=== PATIENT | female | born 2000 | race Caucasian/White ===

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

== ENCOUNTER → 2022-03-28 | Outpatient (CLI) | payer OTHER ==
--- NOTE | 2022-03-28 17:29 | US ---
EXAMINATION TYPE: US kidneys/renal and bladder DATE OF EXAM: 03/28/2022 COMPARISON: NONE CLINICAL HISTORY: R10.9 left flanK pain. left flank pain x 1 week EXAM MEASUREMENTS: Right Kidney: 10.3 x 4.7 x 4.7 cm Left Kidney: 11.0 x 4.6 x 5.9 cm Right Kidney: No hydronephrosis or masses seen Left Kidney: No hydronephrosis or masses seen Bladder: wnl Bilateral Jets seen: Yes IMPRESSION: No renal mass or obstruction. There are bilateral ureteral jets.
== END | disposition home or self-care (01) ==
LOC: RADUSWWP 16:49
PROVIDERS: ATTEND Family Medicine
DX: R10.9 Unspecified abdominal pain (principal)
CPT/HCPCS: 76770

== ENCOUNTER → 2022-08-25 | Outpatient (CLI) | payer OTHER ==
--- NOTE | 2022-08-25 09:43 | US ---
EXAMINATION TYPE: Transabdominal DATE OF EXAM: 08/25/2022 9:19 AM COMPARISON: US CLINICAL HISTORY: Z36.89 CONFIRM DATES AND VIABILITY. Confirm Dates EXAM PERFORMED: Transabdominal (TA) EXAM MEASUREMENTS: GESTATIONAL AGE / DATING Physician Established: (8 weeks/0 days) EDC: 04/06/2023 Dates by LMP: (8 weeks/0 days) EDC: 04/06/2023 Dates by First Scan: Too early to date Dates by Current Scan for: (9 weeks/3 days) EDC: 03/27/2023 MATERNAL ANATOMY Uterus: 11.0 x 7.1 x 7.8 cm Right Ovary: 3.4 x 1.8 x 2.3 cm Left Ovary: 3.1 x 2.2 x 3.2 cm Post CDS / Adnexa: wnl Presence of free fluid: No Presence of corpus luteal cyst: Left Ovary= 2.1 x 2.0 x 2.1 cm Presence of subchorionic bleed: No GESTATION / SURVEY CRL: 2.6 cm (9 weeks/3 days) MSD: wnl Yolk Sac (normal less than 6mm): 3mm Heart Rate: 181 bpm Rhythm: Normal IUP: Viable IUP Date of LMP: 06/30/2022 Single, viable IUP/ No abnormality visualized at this time IMPRESSION: Single viable internal .
== END | disposition home or self-care (01) ==
LOC: RADUSWWP 09:02
PROVIDERS: ATTEND Obstetrics & Gynecology
DX: Z36.89 Encounter for other specified antenatal screening (principal)
CPT/HCPCS: 76801

== ENCOUNTER 2022-09-08 22:01 | Emergency (ER) | payer OTHER ==
[2022-09-08 23:17] LABS: Appearance,Urine Cloudy (Clear); Bilirubin,Urine Negative (Negative); Blood,Urine Negative (Negative); Color,Urine Yellow; Glucose,Urine (UA) Negative (Negative); Ketones,Urine Negative (Negative); Leukocyte Esterase,Urine Negative (Negative); Mucus,Urine Occasional /hpf; Nitrite,Urine Negative (Negative); PH, Urine 5.5 (5.0-8.0); Protein,Urine Negative (Negative); RBC,Urine <1 /hpf (0-5); Specific Gravity,Urine 1.018 (1.001-1.035); Squamous Epithelial Cell,Urine 5 /hpf (0-4); Urobilinogen,Urine <2.0 mg/dL (<2.0); WBC,Urine 5 /hpf (0-5)
[2022-09-09 00:31] VITALS: RESP 18
[2022-09-09] MEDS ORDERED: ACETAMINOPHEN TAB 325 MG TAB PO STA (00:52)
--- NOTE | 2022-09-09 00:55 | ED ---
Dizziness HPI - General Chief Complaint: Dizziness Stated Complaint: Dizziness, Low Blood Pressure, 12 Weeks preg. Time Seen by Provider: 09/09/22 00:36 Source: patient, family, RN notes reviewed, old records reviewed Mode of arrival: ambulatory Limitations: no limitations - History of Present Illness Initial Comments: This is a nontoxic-appearing 22-year-old female presents to the emergency room with her significant other complaining of dizziness on and off for the past 3 days. 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 She has not been any eating very much and not drinking enough water due to her shift change. States that dizziness is worse when going from a lying to sitting or sitting to standing. Denies any vaginal bleeding or abdominal pain. No fevers. No nausea vomiting or diarrhea. States she does have appointment with her primary FUEL CELL DESIGNER tomorrow Dr. Corona. She is a . Did have an ultrasound for this on August 26 showing an IUP of 9 weeks. MD Complaint: lightheadedness -: days(s) (1) Timing: gradual onset History of Same: No History of Trauma: No Improves With: rest Associated Symptoms: denies other symptoms - Related Data Home Medications Medication Instructions Recorded Confirmed EPINEPHrine (Auto Inject) [Epipen] 0.3 mg IM ONCE PRN 02/07/21 02/07/21 Previous Rx's Medication Instructions Recorded Permethrin 5% Cream [Elimite] 1 applic TOPICAL ONCE #60 gram 03/22/21 hydrOXYzine HCL [Atarax] 25 mg PO TID PRN #15 tab 03/22/21 Allergies Allergy/AdvReac Type Severity Reaction Status Date / Time bee venom protein (honey bee) Allergy Anaphylaxis Verified 07/19/22 10:53 latex Allergy Rash/Hives Verified 09/08/22 22:17 Review of Systems ROS Statement: Those systems with pertinent positive or pertinent negative responses have been documented in the HPI. ROS Other: All systems not noted in ROS Statement are negative. Past Medical History Past Medical History: No Reported History History of Any Multi-Drug Resistant Organisms: None Reported Past Surgical History: No Surgical Hx Reported Past Psychological History: No Psychological Hx Reported Smoking Status: Never smoker Past Alcohol Use History: None Reported Past Drug Use History: None Reported General Exam Limitations: no limitations General appearance: alert, in no apparent distress Head exam: Present: atraumatic Eye exam: Present: normal appearance. Absent: scleral icterus, conjunctival injection, periorbital swelling, periorbital tenderness ENT exam: Present: mucous membranes moist Neck exam: Present: full ROM. Absent: meningismus Respiratory exam: Present: normal lung sounds bilaterally. Absent: respiratory distress, accessory muscle use Cardiovascular Exam: Present: regular rate GI/Abdominal exam: Present: soft. Absent: distended, tenderness, guarding, rebound, rigid Extremities exam: Present: full ROM, normal capillary refill. Absent: tenderness, pedal edema Back exam: Absent: tenderness Neurological exam: Present: alert, oriented X3, CN II-XII intact Psychiatric exam: Present: normal affect, normal mood Skin exam: Present: warm, dry, normal color. Absent: cyanosis, diaphoretic, petechiae, pallor Course Vital Signs 09/08/22 09/09/22 09/09/22 22:14 00:29 01:15 Temperature 98.6 F 98.5 F Pulse Rate 83 77 Pulse Rate [ 78 Right Standing Maintenance Electrician ] Pulse Rate [ 74 Right Supine Maintenance Electrician ] Respiratory 16 18 Rate Blood Pressure 133/86 115/80 Blood Pressure 131/79 [Right Arm Standing] Blood Pressure 113/71 [Right Arm Supine] O2 Sat by Pulse 99 Oximetry 09/09/22 01:40 Temperature 98.3 F Pulse Rate 74 Pulse Rate [ Right Standing Maintenance Electrician ] Pulse Rate [ Right Supine Maintenance Electrician ] Respiratory 18 Rate Blood Pressure 107/69 Blood Pressure [Right Arm Standing] Blood Pressure [Right Arm Supine] O2 Sat by Pulse 98 Oximetry EKG Findings - EKG Results: EKG: sinus rhythm (EKG shows sinus rhythm with a ventricular rate of 63, SD interval 0.144, QRS 0.81, QTC 0.401; normal axis) Medical Decision Making - Medical Decision Making Patient states that she does feel dehydrated as though she's not been eating and upper drinking enough fluids. She was offered an IV and declined. She was offered blood work and declined. She was agreeable to receiving Tylenol and given water to drink. She denies any vaginal bleeding, or abdominal pain. On physical exam abdomen is soft and nontender. Urinalysis today shows no evidence of UTI. Vital signs are stable. Orthostatic vital signs were performed negative. EKG performed showing sinus rhythm with ventricular rate of 63, SD interval 0.144, QRS 0.81, QTC 0.41, normal axis, no old EKG to compare Patient had ultrasound done on August 25, which I reviewed report showing a single viable IUP with a heart rate of 181. Patient states that she is working nights this week which is hard adjustment for her. She was offered time off work and she declined. She is encouraged to increase her fluid intake and get plenty of rest. She states she has an appointment with her primary FUEL CELL DESIGNER Dr. Corona tomorrow. Directed to return to the emergency room with any new or concerning symptoms. She is agreeable to this plan of care. Case discussed with Dr. Montilla Was pt. sent in by a medical professional or institution (, PA, PAVING MACHINE OPERATOR, urgent care, hospital, or half-way...) When possible be specific @ -No Did you speak to anyone other than the patient for history (EMS, parent, family, police, friend...)? What history was obtained from this source @ -No Did you review nursing and triage notes (agree or disagree)? Why? @ -I reviewed and agree with nursing and triage notes Were old charts reviewed (outside hosp., previous admission, EMS record, old EKG, old radiological studies, urgent care reports/EKG's, half-way records)? Report findings @ -Yes previous ultrasound as above Differential Diagnosis (chest pain, altered mental status, abdominal pain women, abdominal pain men, vaginal bleeding, weakness, fever, dyspnea, syncope, headache, dizziness, GI bleed, back pain, seizure, CVA, palpatations, mental health, musculoskeletal)? @ -Orthostatic hypotension, UTI, cardiac arrhythmia, dehydration EKG interpreted by me (3pts min.). @ -Yes as above X-rays interpreted by me (1pt min.). @ -None done CT interpreted by me (1pt min.). @ -None done U/S interpreted by me (1pt. min.). @ -None done What testing was considered but not performed or refused? (CT, X-rays, U/S, labs)? Why? @ -None What meds were considered but not given or refused? Why? @ -None Did you discuss the management of the patient with other professionals (professionals i.e. , PA, PAVING MACHINE OPERATOR, lab, RT, psych nurse, socially responsible investment adviser, bilingual loan processor, teacher, chief administrative officer, case fitter)? Give summary @ -No Was smoking cessation discussed for >3mins.? @ -No Was critical care preformed (if so, how long)? @ -No Were there social determinants of health that impacted care today? How? (Homelessness, low income, unemployed, alcoholism, drug addiction, transpor tation, low edu. Level, literacy, decrease access to med. care, halfway, rehab)? @ -No Was there de-escalation of care discussed even if they declined (Discuss DNR or withdrawal of care, Hospice)? DNR status @ -No What co-morbidities impacted this encounter? (DM, HTN, Smoking, COPD, CAD, Cancer, CVA, ARF, Chemo, Hep., AIDS, mental health diagnosis, sleep apnea, morbid obesity)? @ -None Was patient admitted / discharged? Hospital course, mention meds given and route, prescriptions, significant lab abnormalities, going to OR and other pertinent info. @ -Discharged Undiagnosed new problem with uncertain prognosis? @ -No Drug Therapy requiring intensive monitoring for toxicity (Heparin, Nitro, Insulin, Cardizem)? @ -No Were any procedures done? @ -No Diagnosis/symptom? @ -Lightheadedness Acute, or Chronic, or Acute on Chronic? @ -Acute Uncomplicated (without systemic symptoms) or Complicated (systemic symptoms)? @ -Uncomplicated Side effects of treatment? @ -No Exacerbation, Progression, or Severe Exacerbation? @ -No Poses a threat to life or bodily function? How? (Chest pain, [place], [place], pneumonia, PE, COPD, DKA, ARF, appy, cholecystitis, CVA, Diverticulitis, Homicidal, Suicidal, threat to staff... and all critical care pts) @ -No - Lab Data Lab Results 09/08/22 09/08/22 Range/Units 22:24 22:24 Urine Color Yellow Urine Appearance Cloudy H (Clear) Urine pH 5.5 (5.0-8.0) Ur Specific [place] 1.018 (1.001-1.035) Urine Protein Negative (Negative) Urine Glucose (UA) Negative (Negative) Urine Ketones Negative (Negative) Urine Blood Negative (Negative) Urine Nitrite Negative (Negative) Urine Bilirubin Negative (Negative) Urine Urobilinogen <2.0 (<2.0) mg/dL Ur Leukocyte Esterase Negative (Negative) Urine RBC <1 (0-5) /hpf Urine WBC 5 (0-5) /hpf Ur Squamous Epith Cells 5 H (0-4) /hpf Urine Mucus Occasional H (None) /hpf Urine HCG, Qual Detected (Not Detectd) Disposition Clinical Impression: Dizziness Disposition: HOME SELF-CARE Condition: Good Instructions (If sedation given, give patient instructions): Dizziness (ED) Additional Instructions: Increase your fluid intake. Continue taking vitamins. Follow-up with your FUEL CELL DESIGNER as scheduled tomorrow. Return to the emergency room with any new or concerning symptoms. Is patient prescribed a controlled substance at d/c from ED?: No Referrals: None,Stated [Primary Care Provider] - 1-2 days Man Corona MD [STAFF PHYSICIAN] - 1-2 days Time of Disposition: 01:29
[2022-09-09 01:42] VITALS: BP 107/69; PULSE 74; TEMP 98.3
== END 2022-09-09 01:42 | disposition home or self-care (01) ==
LOC: EC 22:01
DX: R42 Dizziness and giddiness (principal); Z91.040 Latex allergy status; Z91.030 Bee allergy status
CPT/HCPCS: 81001; 81025; 93005; 99284

== ENCOUNTER 2023-01-06 19:15 | Outpatient (CLI) | payer OTHER ==
[2023-01-06] MEDS ORDERED: LACTATED RINGERS 1,000 ML IV SCH (20:30)
[2023-01-06 21:14] LABS: Basophils % (A) 0 %; Eosinophils # (A) 0.2 k/uL (0-0.7); Eosinophils % (A) 1 %; HCT 33.1 % (34.0-46.0); HGB 11.3 gm/dL (11.4-16.0); Lymphocytes # (A) 2.3 k/uL (1.0-4.8); Lymphocytes % (A) 17 %; MCH 31.2 pg (25.0-35.0); MCHC 34.3 g/dL (31.0-37.0); MCV 91.1 fL (80.0-100.0); Monocytes # (A) 0.6 k/uL (0-1.0); Monocytes % (A) 4 %; Neutrophils # (A) 10.7 k/uL (1.3-7.7); Neutrophils % (A) 77 %; Platelet Count 269 k/uL (150-450); Poikilocytosis Slight; RBC 3.64 m/uL (3.80-5.40); RDW 13.8 % (11.5-15.5); WBC 13.9 k/uL (4.0-11.0)
[2023-01-06 21:14] LABS: Appearance,Urine Clear (Clear); Bilirubin,Urine Negative (Negative); Blood,Urine Negative (Negative); Color,Urine Light Yellow; Glucose,Urine (UA) Negative (Negative); Ketones,Urine Negative (Negative); Leukocyte Esterase,Urine Negative (Negative); Nitrite,Urine Negative (Negative); Protein,Urine Negative (Negative); Specific Gravity,Urine 1.011 (1.001-1.035); Urobilinogen,Urine <2.0 mg/dL (<2.0)
[2023-01-06 21:28] LABS: ALT 19 U/L (4-34); AST 22 U/L (14-36); African American GFR (CKD) >90 (>60 ml/min/1.73 sqM); Albumin 3.7 g/dL (3.5-5.0); Alkaline Phosphatase 103 U/L (38-126); Anion Gap 10 mmol/L; Blood Urea Nitrogen 7 mg/dL (7-17); Calcium 9.4 mg/dL (8.4-10.2); Carbon Dioxide 18 mmol/L (22-30); Chloride 106 mmol/L (98-107); Glucose 72 mg/dL (74-99); Non-African American GFR(CKD) >90 (>60 ml/min/1.73 sqM); Potassium 3.7 mmol/L (3.5-5.1); Sodium 134 mmol/L (137-145); Total Bilirubin 0.6 mg/dL (0.2-1.3); Total Protein 6.8 g/dL (6.3-8.2)
[2023-01-06 22:57] VITALS: BP 124/70; PULSE 87; RESP 18; TEMP 98.1
--- NOTE | 2023-01-07 04:50 | P.MSEPDOC ---
Presenting Problems - Arrival Data Date of Arrival on Unit: 01/06/23 Time of Arrival on Unit: 19:15 Mode of Transport: Ambulatory - Complaint OB-Reason for Admission/Chief Complaint: Decreased Movement, Other Comment: pt presents with complaints of severe pain in abdomen about 20 after eating or. drinking anything followed by severe loose stools that are "alomost all water today". this has been going on about 3 days also lt sides lower back pain similar to when she had kidney stones at 19. weeks. Medical History - Information : 1 Para: 0 Term: 0 : 0 Abortions: Spontaneous or Elective: 0 Number of Living Children: 0 - Gestational Age Gestational Age by SERGIO (wks/days): 28 Weeks and 4 Days Review of Systems - Review of Systems Constitutional: No problems Breast: No problems ENT: No problems Cardiovascular: No problems Respiratory: No problems Gastrointestinal: Diarrhea Genitourinary: No problems Musculoskeletal: No problems Neurological: No problems Skin: No problems Vital Signs - Temperature Temperature: 98.1 F Temperature Source: Oral - Pulse Right Pulse Rate: 87 Pulse Assessment Method: Pulse Oximetry - Respirations Respiratory Rate: 18 Oxygen Delivery Method: Room Air O2 Sat by Pulse Oximetry: 98 - Blood Pressure Right Arm Blood Pressure: 124/70 Blood Pressure Mean: 88 Blood Pressure Source: Automatic Cuff Medical Screen Scoring - Cervical Exam Dilation (cm): 0 Effacement (%): 0 - Uterine Contractions Frequency From (mins): 0 Frequency To (mins): 10 Duration From (seconds): 20 Duration To (seconds): 40 Intensity: Mild Resting: Soft to palpation - Assessment - Baby A Baseline FHR: 125 Heart Rate - NICHD Category: Category I (Normal) NST: Reactive Physician Notification - Physician Notified Physician Notified Date: 01/06/23 Physician Notified Time: 20:14 Physician: Poornima Hollis Order Received: Yes - Notification Comment Comment: IV LR, LABS, UA Maternal Triage Index - Maternal Triage Index Presenting for scheduled procedure w/no complaint: No - Stat/Priority 1 Stat Priority 1: No - Urgent/Priority 2 Urgent Priority 2: No - Prompt/Priority 3 Prompt Priority 3: No - Non-Urgent/Priority 4 Non-Urgent Priority 4: Yes Criteria Met for Priority 4: loose stools and abd pain Disposition - Disposition OB Disposition: Discharge to home Discharge Date: 01/06/23 Discharge Time: 22:20 I agree with the RN Medical Screening Exam: Yes Case reviewed; plan agreed upon as documented in EMR&OBIX.: Yes Diagnosis: DIARRHEA, UNSPECIFIED
== END 2023-01-06 22:20 | disposition home or self-care (01) ==
LOC: FBPOP 19:15
PROVIDERS: ATTEND Obstetrics & Gynecology
DX: O36.8131 Decreased fetal movements, third trimester, fetus 1 (principal); O99.891 Other specified diseases and conditions complicating pregnancy; R19.7 Diarrhea, unspecified; Z3A.28 28 weeks gestation of pregnancy; Z91.030 Bee allergy status; Z88.5 Allergy status to narcotic agent; Z91.040 Latex allergy status
CPT/HCPCS: 59025; 80053; 85025; 81003; G0463; 99213

== ENCOUNTER 2023-02-20 12:56 | Outpatient (CLI) | payer OTHER ==
[2023-02-20 14:56] VITALS: BP 130/77; RESP 17; TEMP 96.3
--- NOTE | 2023-02-24 06:39 | P.MSEPDOC ---
Presenting Problems - Arrival Data Date of Arrival on Unit: 02/20/23 Time of Arrival on Unit: 12:56 Mode of Transport: Ambulatory - Complaint OB-Reason for Admission/Chief Complaint: Decreased Movement Comment: pt states she only felt one movment on the way here for the whole day Medical History - Information : 1 Para: 0 Term: 0 : 0 Abortions: Spontaneous or Elective: 0 Number of Living Children: 0 - Gestational Age Gestational Age by SERGIO (wks/days): 35 Weeks and 0 Days Review of Systems - Review of Systems Constitutional: No problems Breast: No problems ENT: No problems Cardiovascular: No problems Respiratory: No problems Gastrointestinal: No problems Genitourinary: No problems Musculoskeletal: No problems Neurological: No problems Skin: No problems Vital Signs - Temperature Temperature: 96.3 F Temperature Source: Temporal Artery Scan - Respirations Respiratory Rate: 17 Oxygen Delivery Method: Room Air O2 Sat by Pulse Oximetry: 99 - Blood Pressure Right Arm Blood Pressure: 130/77 Blood Pressure Mean: 94 Blood Pressure Source: Automatic Cuff Medical Screen Scoring - Assessment - Baby A Baseline FHR: 130 Heart Rate - NICHD Category: Category I (Normal) NST: Reactive Physician Notification - Physician Notified Physician Notified Date: 02/20/23 Physician Notified Time: 13:30 Physician: Man Corona New Order Received: Yes - Notification Comment Comment: Ok to D/C after reactive NSt Maternal Triage Index - Maternal Triage Index Presenting for scheduled procedure w/no complaint: No - Stat/Priority 1 Stat Priority 1: No - Urgent/Priority 2 Urgent Priority 2: Yes Provider Notified: Man Corona Provider Notified Time: 13:30 Criteria Met for Priority 2: decrease movement Disposition - Disposition OB Disposition: Discharge to home Discharge Date: 02/20/23 Discharge Time: 13:59 I agree with the RN Medical Screening Exam: Yes Case reviewed; plan agreed upon as documented in EMR&OBIX.: Yes Diagnosis: DECREASED MOVEMENTS, THIRD TRIMESTER, FETUS 1
== END 2023-02-20 13:59 | disposition home or self-care (01) ==
LOC: FBPOP 12:56
PROVIDERS: ATTEND Obstetrics & Gynecology
DX: O36.8131 Decreased fetal movements, third trimester, fetus 1 (principal); Z3A.35 35 weeks gestation of pregnancy; Z91.030 Bee allergy status; Z91.040 Latex allergy status; Z88.5 Allergy status to narcotic agent
CPT/HCPCS: 99213

== ENCOUNTER 2023-02-24 09:09 | Outpatient (CLI) | payer OTHER ==
[2023-02-24 11:25] VITALS: BP 132/79; PULSE 111; RESP 16; TEMP 98
--- NOTE | 2023-02-25 06:41 | P.MSEPDOC ---
Presenting Problems - Arrival Data Date of Arrival on Unit: 02/24/23 Time of Arrival on Unit: 09:09 Mode of Transport: Ambulatory - Complaint OB-Reason for Admission/Chief Complaint: Possible Onset of Labor Medical History - Information : 1 Para: 0 Term: 0 : 0 Abortions: Spontaneous or Elective: 0 Number of Living Children: 0 - Gestational Age Gestational Age by SERGIO (wks/days): 35 Weeks and 4 Days Review of Systems - Review of Systems Constitutional: No problems Breast: No problems ENT: No problems Cardiovascular: No problems Respiratory: No problems Gastrointestinal: No problems Genitourinary: No problems Musculoskeletal: No problems Neurological: No problems Skin: No problems Vital Signs - Temperature Temperature: 98.0 F Temperature Source: Temporal Artery Scan - Pulse Right Sitting Pulse Rate: 111 Pulse Assessment Method: Automatic Cuff - Respirations Respiratory Rate: 16 Oxygen Delivery Method: Room Air - Blood Pressure Right Arm Blood Pressure: 132/79 Blood Pressure Mean: 96 Blood Pressure Source: Automatic Cuff Medical Screen Scoring - Cervical Exam Dilation (cm): 0 Station: -2 Membranes: Intact - Uterine Contractions Frequency From (mins): 2 Frequency To (mins): 4 Duration From (seconds): 60 Duration To (seconds): 70 Intensity: Mild Resting: Soft to palpation - Assessment - Baby A Baseline FHR: 135 Heart Rate - NICHD Category: Category I (Normal) NST: Reactive Physician Notification - Physician Notified Physician Notified Date: 02/24/23 Physician Notified Time: 10:43 Physician: Man Corona New Order Received: Yes (d/c home) Maternal Triage Index - Non-Urgent/Priority 4 Non-Urgent Priority 4: Yes Criteria Met for Priority 4: reactive nst, irregular contractions, vag exam fingertip with no chagnge Disposition - Disposition OB Disposition: Discharge to home Discharge Date: 02/24/23 Discharge Time: 10:55 I agree with the RN Medical Screening Exam: Yes Case reviewed; plan agreed upon as documented in EMR&OBIX.: Yes Diagnosis: FALSE LABOR BEFORE 37 COMPLETED WEEKS OF GEST, THIRD TRI
== END 2023-02-24 10:55 | disposition home or self-care (01) ==
LOC: FBPOP 09:09
PROVIDERS: ATTEND Obstetrics & Gynecology
DX: O47.03 False labor before 37 completed weeks of gestation, third trimester (principal); Z3A.35 35 weeks gestation of pregnancy; Z91.030 Bee allergy status; Z91.040 Latex allergy status; Z88.5 Allergy status to narcotic agent
CPT/HCPCS: 59025; G0463; 99213

== ENCOUNTER 2023-02-28 22:03 | Outpatient (CLI) | payer OTHER ==
[2023-02-28 23:19] LABS: Basophils % (A) 0 %; Eosinophils # (A) 0.3 k/uL (0-0.7); Eosinophils % (A) 3 %; HCT 30.9 % (34.0-46.0); HGB 10.4 gm/dL (11.4-16.0); Hypochromasia Slight; Lymphocytes % (A) 19 %; MCH 28.8 pg (25.0-35.0); MCHC 33.7 g/dL (31.0-37.0); Mean Platelet Volume 9.2; Monocytes # (A) 0.6 k/uL (0-1.0); Monocytes % (A) 5 %; Neutrophils # (A) 7.5 k/uL (1.3-7.7); Neutrophils % (A) 72 %; Platelet Count 304 k/uL (150-450); Poikilocytosis Slight; RBC 3.61 m/uL (3.80-5.40); RDW 15.3 % (11.5-15.5); WBC 10.5 k/uL (3.8-10.6)
[2023-02-28 23:29] LABS: ALT 19 U/L (4-34); AST 24 U/L (14-36); African American GFR (CKD) >90 (>60 ml/min/1.73 sqM); Blood Urea Nitrogen 5 mg/dL (7-17); LDH 228 U/L (120-246); Magnesium 1.5 mg/dL (1.6-2.3); Non-African American GFR(CKD) >90 (>60 ml/min/1.73 sqM); Uric Acid 3.9 mg/dL (3.7-7.4)
[2023-02-28 23:36] LABS: INR 0.9 (<1.2); Partial Thromboplastin Time 22.1 sec (22.0-30.0); Prothrombin Time 9.7 sec (10.0-12.5)
[2023-02-28 23:39] LABS: Creatinine,Urine Random 57.7 mg/dL; Protein/Creatinine Ratio,Urine 0.191
[2023-02-28 23:41] LABS: Amorphous Sediment,Urine Occasional /hpf; Appearance,Urine Cloudy (Clear); Bacteria,Urine Rare /hpf; Bilirubin,Urine Negative (Negative); Blood,Urine Negative (Negative); Color,Urine Colorless; Glucose,Urine (UA) Negative (Negative); Ketones,Urine Negative (Negative); Leukocyte Esterase,Urine Negative (Negative); Mucus,Urine Rare /hpf; Nitrite,Urine Negative (Negative); Protein,Urine Negative (Negative); RBC,Urine 1 /hpf (0-5); Squamous Epithelial Cell,Urine 27 /hpf (0-4); Urobilinogen,Urine <2.0 mg/dL (<2.0); WBC,Urine 4 /hpf (0-5)
[2023-02-28 23:48] LABS: MCV 85.6 fL (80.0-100.0)
[2023-03-01 00:39] VITALS: BP 142/84; PULSE 101; RESP 16; TEMP 97.2
== END 2023-03-01 00:09 | disposition home or self-care (01) ==
LOC: FBPOP 22:03
PROVIDERS: ATTEND Obstetrics & Gynecology
DX: M79.89 Other specified soft tissue disorders (principal); R03.0 Elevated blood-pressure reading, without diagnosis of hypertension; Z91.030 Bee allergy status; Z91.040 Latex allergy status; Z88.5 Allergy status to narcotic agent
CPT/HCPCS: 59025; 36415; 82570; 84156; 82565; 83615; 83735; 84450; 84460; 84520; 84550; 85025; 85384; 85610; 85730; 81001; G0463; 99215

== ENCOUNTER 2023-03-05 09:43 | Outpatient (CLI) | payer OTHER ==
[2023-03-05 10:28] LABS: Basophils % (A) 0 %; Eosinophils # (A) 0.2 k/uL (0-0.7); Eosinophils % (A) 2 %; HCT 31.3 % (34.0-46.0); HGB 10.4 gm/dL (11.4-16.0); Hypochromasia Slight; Lymphocytes # (A) 1.7 k/uL (1.0-4.8); Lymphocytes % (A) 19 %; MCH 28.2 pg (25.0-35.0); MCHC 33.2 g/dL (31.0-37.0); MCV 84.8 fL (80.0-100.0); Mean Platelet Volume 9.1; Monocytes # (A) 0.5 k/uL (0-1.0); Monocytes % (A) 5 %; Neutrophils # (A) 6.5 k/uL (1.3-7.7); Neutrophils % (A) 73 %; Platelet Count 305 k/uL (150-450); Poikilocytosis Slight; RBC 3.69 m/uL (3.80-5.40); RDW 15.3 % (11.5-15.5)
[2023-03-05 10:56] VITALS: BP 129/89; PULSE 103; RESP 18; TEMP 96.7
[2023-03-05 11:23] LABS: ALT 19 U/L (4-34); AST 23 U/L (14-36); African American GFR (CKD) >90 (>60 ml/min/1.73 sqM); Blood Urea Nitrogen 7 mg/dL (7-17); LDH 210 U/L (120-246); Non-African American GFR(CKD) >90 (>60 ml/min/1.73 sqM); Uric Acid 4.4 mg/dL (3.7-7.4)
--- NOTE | 2023-03-06 07:01 | P.MSEPDOC ---
Presenting Problems - Arrival Data Date of Arrival on Unit: 03/05/23 Time of Arrival on Unit: 09:43 Mode of Transport: Ambulatory - Complaint OB-Reason for Admission/Chief Complaint: PIH Comment: with orders from office. Medical History - Information : 1 Para: 0 Term: 0 : 0 Abortions: Spontaneous or Elective: 0 Number of Living Children: 0 - Gestational Age Gestational Age by SERGIO (wks/days): 36 Weeks and 6 Days Review of Systems - Review of Systems Constitutional: No problems Breast: No problems ENT: No problems Cardiovascular: No problems Respiratory: No problems Gastrointestinal: No problems Genitourinary: No problems Musculoskeletal: No problems Neurological: No problems Skin: No problems Vital Signs - Temperature Temperature: 96.7 F Temperature Source: Temporal Artery Scan - Pulse Right Pulse Rate: 103 Pulse Assessment Method: Pulse Oximetry - Respirations Respiratory Rate: 18 Oxygen Delivery Method: Room Air O2 Sat by Pulse Oximetry: 99 - Blood Pressure Right Arm Blood Pressure: 129/89 Blood Pressure Mean: 102 Blood Pressure Source: Automatic Cuff Medical Screen Scoring - Cervical Exam Membranes: Intact - Uterine Contractions Frequency From (mins): 9 Frequency To (mins): 13 Duration From (seconds): 70 Duration To (seconds): 100 Intensity: Mild Resting: Soft to palpation - Assessment - Baby A Baseline FHR: 125 Heart Rate - NICHD Category: Category I (Normal) NST: Reactive Physician Notification - Physician Notified Physician Notified Date: 03/05/23 Physician Notified Time: 10:33 New Order Received: Yes (Discharge home with instructions with wnl lab results.) Maternal Triage Index - Maternal Triage Index Presenting for scheduled procedure w/no complaint: No - Stat/Priority 1 Stat Priority 1: No - Urgent/Priority 2 Urgent Priority 2: Yes Provider Notified: Man Corona Provider Notified Time: 10:33 Criteria Met for Priority 2: Sent over from office with orders for PIH work up. - Prompt/Priority 3 Prompt Priority 3: No - Non-Urgent/Priority 4 Non-Urgent Priority 4: No Disposition - Disposition OB Disposition: Triage, Discharge to home Discharge Date: 03/05/23 Discharge Time: 11:28 I agree with the RN Medical Screening Exam: Yes Case reviewed; plan agreed upon as documented in EMR&OBIX.: Yes Diagnosis: GESTATIONAL HTN W/O SIGNIFICANT PROTEINURIA, THIRD TRIMESTER
== END 2023-03-05 11:28 | disposition home or self-care (01) ==
LOC: FBPOP 09:43
PROVIDERS: ATTEND Obstetrics & Gynecology
DX: O13.3 Gestational [pregnancy-induced] hypertension without significant proteinuria, third trimester (principal); Z3A.36 36 weeks gestation of pregnancy; Z91.030 Bee allergy status; Z91.040 Latex allergy status; Z88.5 Allergy status to narcotic agent
CPT/HCPCS: 82565; 83615; 84450; 84460; 84520; 84550; 85025

== ENCOUNTER 2023-03-09 05:46 | Inpatient (IN) | payer OTHER ==
[2023-03-09] MEDS ORDERED: CARBOPROST TROMETHAMINE 250 MCG/ML 1 ML AMP IM PRN ×2 (06:09→21:12)
[2023-03-09] MEDS ORDERED: TRANEXAMIC 1,000 MG/100ML-NACL 1,000 MG in EMPTY BAG 1 BAG IV PRN ×2 (06:09→21:12)
[2023-03-09] MEDS ORDERED: TERBUTALINE 1 MG/ML VIAL SQ PRN (06:09)
[2023-03-09] MEDS ORDERED: OXYTOCIN 10 UNIT/ML 1 ML VIAL IM PRN ×2 (06:09→21:12)
[2023-03-09] MEDS ORDERED: METHYLERGONOVINE 0.2 MG/ML 1 ML AMP IM PRN ×2 (06:09→21:12)
[2023-03-09] MEDS ORDERED: LIDOCAINE 0.5% (PF) 5 MG/ML (50 ML SDV) SQ PRN (06:09)
[2023-03-09] MEDS ORDERED: miSOPROStoL 200 MCG TAB PO PRN ×2 (06:09→21:12)
[2023-03-09] MEDS ORDERED: OXYTOCIN 30 UNITS/500 ML NS 30 UNIT in SALINE 1 500ML.BAG IV SCH ×2 (06:09→22:30)
--- NOTE | 2023-03-09 06:28 | P.HPOB ---
History of Present Illness H&P Date: 03/09/23 Chief Complaint: Gestational hypertension This patient is a pleasant 23-year-old 1 para 0 female estimated date of confinement 03/27/2023 estimated gestational age 37-3/7 weeks who presents to labor and delivery for induction of labor secondary to gestational hypertension. Patient's history is such that she had been in triage last week and was noted to have elevated blood pressures fitting criteria for gestational hypertension. Preeclampsia labs were normal. I did repeat them on Thursday and they were normal as well. Patient's blood pressure however remains elevated above specific criteria and per recommendations we plan to proceed with induction due to ges tational hypertension. care has otherwise been uncomplicated. Review of Systems Genitourinary: Reports Menstruation: Reports amenorrhea Past Medical History Past Medical History: No Reported History History of Any Multi-Drug Resistant Organisms: None Reported Past Surgical History: No Surgical Hx Reported Past Psychological History: No Psychological Hx Reported Smoking Status: Never smoker Past Alcohol Use History: None Reported Past Drug Use History: None Reported Medications and Allergies Home Medications Medication Instructions Recorded Confirmed Type No Known Home Medications 02/24/23 03/05/23 History Allergies Allergy/AdvReac Type Severity Reaction Status Date / Time bee venom protein (honey bee) Allergy Anaphylaxis Verified 03/09/23 06:08 latex Allergy Rash/Hives Verified 03/09/23 06:08 morphine Allergy Swelling Verified 03/09/23 06:08 Exam Intake and Output 03/08/23 03/08/23 03/09/23 14:59 22:59 06:59 Other: Weight 97.522 kg - OBG Physical Exam Abdomen: bowel sounds normal, no diffuse tenderness, no bruit present, no guarding noted, no hepatomegaly, no splenomegaly, no mass Vulva: both: normal Vagina: normal moisture, no discharge Cervix: no lesion (Cervix is 2 cm and thick and -2 station), no discharge Uterus: enlarged (Fundal height is 40 cm) Results labs show she is O+, rubella immune, RPR nonreactive, hepatitis B and C are negative, HIV is nonreactive, Quad screen was negative, anatomy ultrasound was normal, Glucola was normal, group B strep was negative, most recent ultrasound done on February 23 showed the baby 7 lbs. 1 oz. Assessment and Plan Assessment: This is a pleasant 23-year-old 1 para 0 female 37-3/7 weeks gestation with gestational hypertension who presents for delivery secondary to this. Plan is induction of labor with Pitocin per protocol. We anticipate vaginal delivery. (1) 37 weeks gestation of Current Visit: Yes Status: Acute Code(s): Z3A.37 - 37 WEEKS GESTATION OF SNOMED Code(s): 26731194 (2) Gestational hypertension Current Visit: Yes Status: Acute Code(s): O13.9 - GESTATIONAL HTN W/O SIGNIFICANT PROTEINURIA, UNSP TRIMESTER SNOMED Code(s): 64493087
[2023-03-09 06:30] LABS: Basophils % (A) 0 %; Eosinophils # (A) 0.2 k/uL (0-0.7); Eosinophils % (A) 2 %; HCT 31.6 % (34.0-46.0); HGB 10.6 gm/dL (11.4-16.0); Hypochromasia Slight; Lymphocytes # (A) 2.1 k/uL (1.0-4.8); Lymphocytes % (A) 18 %; MCH 28.1 pg (25.0-35.0); MCHC 33.4 g/dL (31.0-37.0); Mean Platelet Volume 9.3; Monocytes # (A) 0.6 k/uL (0-1.0); Monocytes % (A) 5 %; Neutrophils # (A) 8.3 k/uL (1.3-7.7); Neutrophils % (A) 73 %; Platelet Count 327 k/uL (150-450); Poikilocytosis Slight; RBC 3.76 m/uL (3.80-5.40); RDW 15.5 % (11.5-15.5); WBC 11.3 k/uL (3.8-10.6)
[2023-03-09] MEDS: LACTATED RINGERS 1,000 ML IV SCH ×3 (06:46→23:28)
[2023-03-09] MEDS ORDERED: NALBUPHINE 10 MG/ML (10 ML MDV) IV PRN (13:46)
[2023-03-09] MEDS ORDERED: fentaNYL (PF) 50 MCG/ML 5 ML AMP ONE (14:58)
[2023-03-09] MEDS ORDERED: ROPIVACAINE 5 MG/ML 30 ML VIAL ONE (14:58)
[2023-03-09] MEDS ORDERED: SODIUM CHLORIDE 0.9% 250 ML BAG ONE (14:58)
[2023-03-09] MEDS ORDERED: CITRIC ACID-SODIUM CITRATE 15 ML CUP PO ONE (21:12)
[2023-03-09] MEDS ORDERED: KETOROLAC 15 MG/ML 1 ML VIAL ONE (21:20)
[2023-03-09] MEDS ORDERED: ONDANSETRON 4 MG/2 ML VIAL ONE (21:20)
[2023-03-09] MEDS ORDERED: fentaNYL (PF) 50 MCG/ML 2 ML AMP ONE (21:20)
[2023-03-09] MEDS ORDERED: LANOLIN CREAM 5 GM TUBE TOPICAL PRN (22:16)
[2023-03-09] MEDS ORDERED: diphenhydrAMINE 25 MG CAP PO PRN (22:16)
[2023-03-09] MEDS ORDERED: ONDANSETRON 4 MG/2 ML VIAL IVP PRN (22:16)
[2023-03-09] MEDS ORDERED: NALOXONE 0.4 MG/ML 1 ML VIAL IV PRN (22:16)
[2023-03-09] MEDS ORDERED: SIMETHICONE 80 MG CHEWABLE PO PRN (22:16)
[2023-03-09] MEDS ORDERED: diphenhydrAMINE 50 MG/ML 1 ML VIAL IVP PRN (22:16)
[2023-03-09] MEDS ORDERED: ZOLPIDEM 5 MG TAB PO PRN (22:16)
[2023-03-09] MEDS ORDERED: METOCLOPRAMIDE 5 MG/ML 2 ML VIAL IVP PRN (22:16)
--- NOTE | 2023-03-09 22:39 | P.OP ---
Date of Procedure: 03/09/23 Preoperative Diagnosis: #1: 37-3/7 week intrauterine . #2: Gestational hypertension. #3: Cephalopelvic dystocia Postoperative Diagnosis: Same Procedure(s) Performed: Primary low transverse section Anesthesia: epidural Surgeon: Man Corona Education General Manager #1: Lore Castro Estimated Blood Loss (ml): 800 Pathology: other (Placenta) Condition: stable Disposition: floor Indications for Procedure: Please see dictated H&P for intimate details of this patient's admission. In brief summary this is a pleasant 23-year-old 1 para 0 female 37-3/7 weeks who presented to labor and delivery for induction of labor secondary to gestational hypertension. On admission patient is 2 cm does artificial rupture membranes for clear fluid. Labor progresses she does request night uterus for pain control and then an epidural for pain control. Patient gets to an anterior lip and the cervix begin swelling significantly. Head does not descend beyond 0 station at this time. I did try to have the patient push past this anterior lip however the cervix did not reduced. She does have some mild variable decelerations as well. At this time we'll recommend she proceed with delivery by section. After patient centered huiddle, I discussed the risks and benefits of the surgery. Patient wished to proceed. She understands risks of infection, bleeding, possible injury bowel, bladder, vessels, and/or other organs. All the patient's questions are answered and a written consent is obtained. Operative Findings: This is a vigorous viable male infant Apgars 8 and 8 delivery time is 2139 hrs. Infant was occiput transverse presentation. There is a nuchal cord 1. Description of Procedure: This patient has a Rogers catheter placed to straight drain. She subsequently taken to the operating room where her epidural is dosed up for sufficient level of surgery. With an adequate level of anesthesia she has abdominal prep and drape. After the appropriate timeout, scalpels taken Pfannenstiel skin incision is made. A second scalpel is taken down the fascia the fascia scored with a knife. Fascial incision extended bilaterally using the Lema scissors. Fascia is dissected off the rectus muscles sharply. Rectus muscles are peritoneum identified and entered sharply. Peritoneal incision extended superior and inferior without difficulty. Bladder blade is then placed. Bladder peritoneum was taken sharply off the lower uterine segment. Scalpels and taken a low transverse uterine incision is then made. Using a hemostat I into the uterine cavity bluntly and there is loss of clear fluid. This incision is extended bluntly. Infant's head is then easily guided through the incision with fundal pressure delivered. It is occiput transverse presentation. There is a nuchal cord 1 which is easily reduced. Baby's mouth and nares are bulb suctioned. With more fundal pressure with delivery the rest this 's body. This is a vigorous viable male Apgars 8 and 8 delivery was at 2139 hrs. After delivery of the infant the umbilical cord is doubly clamped and cut appears to be trivascular. The placenta is then manually extracted intact. [place] miranda is then externalized and uterine incision demarcated with Nair clamps. Uterus is a bit boggy and therefore given 10 units of Pitocin IV at this time. Uterus firms up well. Uterine incision is closed using 0 Vicryl running locked fashion 2 layers. Excellent hemostasis is noted. The bladder peritoneum was then reapproximated using a 3-0 Vicryl running fashion. Excess fluid is removed from the abdomen and pelvis. Uterus, tubes, ovaries appear normal for term gestation. Uterus placed back in the abdomen. Parietal peritoneum was then closed using 0 Vicryl running fashion. Rectus muscles reapproximated in 0 Vicryl interrupted fashion. Fascial incision is then closed using 0 PDS. Fascial incision is intact and hemostatic. Subcutaneous tissues and closed using a 3-0 Vicryl. Skin is and closed using genaro. All counts are correct 3. There are no complications. Infant is taken special care nursery for observation and mother taken the birthing suite in satisfactory condition.
[2023-03-09] MEDS: ACETAMINOPHEN IV (For NPO) 1,000 MG in EMPTY BAG 1 BAG IVPB SCH (23:37)
[2023-03-10] MEDS ORDERED: ACETAMINOPHEN TAB 500 MG TAB PO SCH (01:30)
[2023-03-10] MEDS: KETOROLAC 15 MG/ML 1 ML VIAL IVP SCH ×2 (03:43→15:48)
[2023-03-10] MEDS: IBUPROFEN 600 MG TAB PO SCH ×4 (05:39→23:04)
--- NOTE | 2023-03-10 06:21 | P.PNOBGPC ---
Subjective - Subjective Patient reports: Reports appetite normal, Reports voiding normally, Reports pain well controlled, Reports ambulating normally : doing well Objective - Vital Signs Latest vital signs: Vital Signs Temp Pulse Resp BP Pulse Ox 03/10/23 04:00 98.5 F 80 16 109/70 98 03/10/23 00:10 98.9 F 97 16 133/77 99 03/09/23 23:48 99.1 F 82 16 125/62 03/09/23 23:18 99.2 F 88 16 123/72 03/09/23 23:03 98.5 F 94 16 122/69 03/09/23 22:48 16 129/77 03/09/23 22:33 99.3 F 92 16 120/73 03/09/23 22:18 99.3 F 95 16 120/73 03/09/23 22:16 99 Intake and Output 03/09/23 03/09/23 03/10/23 14:59 22:59 06:59 Intake Total 800 600 Output Total 800 2490 Balance 800 -200 -2490 Intake: IV 800 600 Output: Urine 600 Estimated Blood Loss 800 1650 Output, Quantitative 240 Blood Loss Other: Voiding Method Indwelling Catheter # Voids 1 - Exam Lungs: bilateral: normal Chest: Normal S1, Normal S2 Extremities: Present: normal Abdomen: Present: normal appearance, soft. Absent: distention, tenderness Incision: Present: normal, dry, intact Uterus: Present: normal, firm - Labs Labs: Abnormal Lab Results - Last 24 Hours (Table) 03/09/23 Range/Units 06:10 WBC 11.3 H (3.8-10.6) k/uL RBC 3.76 L (3.80-5.40) m/uL Hgb 10.6 L (11.4-16.0) gm/dL Hct 31.6 L (34.0-46.0) % Neutrophils # 8.3 H (1.3-7.7) k/uL Assessment and Plan Assessment: Postoperative day #1. Patient is resting without new complaints. Vital signs are stable she's afebrile. Uterus is firm nontender and her incision is intact and dry. Patient is having normal lochia. She is tolerating some clear liquids. Plan today is to check CBC, advance her diet, encourage ambulation, allow patient to shower, and continue routine postoperative care. (1) 37 weeks gestation of Current Visit: Yes Status: Acute Code(s): Z3A.37 - 37 WEEKS GESTATION OF SNOMED Code(s): 85915573 (2) Gestational hypertension Current Visit: Yes Status: Acute Code(s): O13.9 - GESTATIONAL HTN W/O SIGNIF ICANT PROTEINURIA, UNSP TRIMESTER SNOMED Code(s): 66968321
[2023-03-10 07:54] LABS: Basophils % (A) 0 %; Eosinophils # (A) 0.1 k/uL (0-0.7); Eosinophils % (A) 1 %; HCT 25.8 % (34.0-46.0); Hypochromasia Slight; Lymphocytes # (A) 1.6 k/uL (1.0-4.8); Lymphocytes % (A) 9 %; MCH 27.8 pg (25.0-35.0); MCHC 32.9 g/dL (31.0-37.0); MCV 84.5 fL (80.0-100.0); Monocytes # (A) 0.8 k/uL (0-1.0); Monocytes % (A) 4 %; Neutrophils # (A) 14.6 k/uL (1.3-7.7); Neutrophils % (A) 84 %; Platelet Count 255 k/uL (150-450); Poikilocytosis Moderate; RBC 3.05 m/uL (3.80-5.40); RDW 15.9 % (11.5-15.5); WBC 17.3 k/uL (3.8-10.6)
[2023-03-10 07:59] LABS: HGB 8.5 gm/dL (11.4-16.0)
[2023-03-10] MEDS: ACETAMINOPHEN IV (For NPO) 1,000 MG in EMPTY BAG 1 BAG IVPB SCH (08:00)
[2023-03-10] MEDS: SENNOSIDES-DOCUSATE SODIUM 1 EACH TAB PO SCH ×2 (08:03→20:29)
[2023-03-10] MEDS: FERROUS SULFATE 325 MG TAB PO SCH (11:44)
[2023-03-10] MEDS: ACETAMINOPHEN TAB 500 MG TAB PO SCH ×2 (14:40→20:29)
[2023-03-10] MEDS: LACTATED RINGERS 1,000 ML IV SCH ×2 (15:48→15:49)
[2023-03-11] MEDS: FERROUS SULFATE 325 MG TAB PO SCH (01:47)
[2023-03-11] MEDS: KETOROLAC 15 MG/ML 1 ML VIAL IVP SCH (01:47)
[2023-03-11] MEDS: ACETAMINOPHEN TAB 500 MG TAB PO SCH (02:42)
[2023-03-11] MEDS: LACTATED RINGERS 1,000 ML IV SCH ×2 (03:15→06:09)
[2023-03-11] MEDS: IBUPROFEN 600 MG TAB PO SCH (05:23)
--- NOTE | 2023-03-11 06:15 | P.PNOBGPC ---
Subjective - Subjective Patient reports: Reports appetite normal, Reports voiding normally, Reports pain well controlled, Reports ambulating normally : doing well Objective - Vital Signs Latest vital signs: Vital Signs Temp Pulse Resp BP Pulse Ox 03/11/23 00:00 97.6 F 86 15 95/56 98 03/10/23 20:00 98.1 F 86 15 110/70 98 03/10/23 15:47 97.9 F 76 15 117/77 98 03/10/23 12:27 97.9 F 92 14 109/72 03/10/23 08:12 97.9 F 86 14 122/77 Intake and Output 03/10/23 03/10/23 03/11/23 14:59 22:59 06:59 Intake Total 480 Output Total 1650 Balance -1650 480 Intake: Oral 480 Output: Urine 1650 Uretheral (Rogers) 275 Other: # Voids 1 - Exam Lungs: bilateral: normal Chest: Normal S1, Normal S2 Extremities: Present: normal Abdomen: Present: normal appearance, soft. Absent: distention, tenderness Incision: Present: normal, dry, intact Uterus: Present: normal, firm - Labs Labs: Abnormal Lab Results - Last 24 Hours (Table) 03/10/23 Range/Units 07:08 WBC 17.3 H (3.8-10.6) k/uL RBC 3.05 L (3.80-5.40) m/uL Hgb 8.5 L D (11.4-16.0) gm/dL Hct 25.8 L (34.0-46.0) % RDW 15.9 H (11.5-15.5) % Neutrophils # 14.6 H (1.3-7.7) k/uL Assessment and Plan Assessment: Post operative day #2. Patient is resting without complaints wishes to go home. Vital signs are stable she is afebrile. Uterus is firm nontender and her incision is intact and dry. CBC yesterday showed a hemoglobin of 8.5 and is consistent with her preoperative hemoglobin. I did repeated today and she started on some iron. Patient's ambulating and urinating without difficulty. She's tolerating regular diet. My impression is that this is a normal postoperative course. Plan is to continue routine postoperative care discharge home later today. (1) 37 weeks gestation of Current Visit: Yes Status: Acute Code(s): Z3A.37 - 37 WEEKS GESTATION OF SNOMED Code(s): 14163285 (2) Gestational hypertension Current Visit: Yes Status: Acute Code(s): O13.9 - GESTATIONAL HTN W/O SIGNIFICANT PROTEINURIA, UNSP TRIMESTER SNOMED Code(s): 72269864
--- NOTE | 2023-03-11 06:19 | P.DS ---
Providers Date of admission: 03/09/23 05:46 Expected date of discharge: 03/11/23 Attending physician: Man Corona Primary care physician: Jareth Resendiz - Discharge Diagnosis(es) (1) 37 weeks gestation of Current Visit: Yes Status: Acute (2) Gestational hypertension Current Visit: Yes Status: Acute Hospital Course: Please see dictated H&P for intimate details of this patient's admission. Brief summary this is a pleasant 23-year-old 1 para 0 female 37-3/7 weeks gestation admitted to labor and delivery for induction secondary to gestational hypertension. Patient subsequently undergoes a primary low transverse section for cephalopelvic dystocia. Please see dictated operative note. Postoperative patient does well on postoperative 2 she felt be stable for discharge home follow up with me in 1 week. Procedures: Induction of labor and primary low transverse section Patient Condition at Discharge: Good Plan - Discharge Summary New Discharge Prescriptions: New Ferrous Sulfate [Iron (65 MG Elemental)] 325 mg PO BID-W/MEALS #60 tab Ibuprofen [Motrin] 600 mg PO Q6H #40 tab Discharge Medication List Ferrous Sulfate [Iron (65 MG Elemental)] 325 mg PO BID-W/MEALS #60 tab 03/11/23 [Rx] Ibuprofen [Motrin] 600 mg PO Q6H #40 tab 03/11/23 [Rx] Follow up Appointment(s)/Referral(s): Man Corona MD [STAFF PHYSICIAN] - 04/22/23 9:45 am (Post Op Appointment 03-20-2023 at 9:00) Patient Instructions/Handouts: (DC), Iron Rich Diet (DC), Iron Deficiency Anemia (GEN) Activity/Diet/Wound Care/Special Instructions: No heavy lifting or strenuous activities for 6 weeks. No intercourse or anything per vagina for 6 weeks. Please call if any fever, chills, excessive vaginal bleeding, and/or abdominal pain Discharge Disposition: HOME SELF-CARE
[2023-03-11 07:25] LABS: Anisocytosis Slight; Basophils % (A) 0 %; Eosinophils # (A) 0.3 k/uL (0-0.7); Eosinophils % (A) 2 %; HCT 23.7 % (34.0-46.0); HGB 7.9 gm/dL (11.4-16.0); Hypochromasia Slight; Lymphocytes # (A) 1.8 k/uL (1.0-4.8); Lymphocytes % (A) 13 %; MCH 28.2 pg (25.0-35.0); MCHC 33.4 g/dL (31.0-37.0); MCV 84.4 fL (80.0-100.0); Mean Platelet Volume 9.8; Monocytes # (A) 0.6 k/uL (0-1.0); Monocytes % (A) 5 %; Neutrophils # (A) 10.9 k/uL (1.3-7.7); Neutrophils % (A) 79 %; Platelet Count 262 k/uL (150-450); Poikilocytosis Slight; RBC 2.81 m/uL (3.80-5.40); RDW 16.1 % (11.5-15.5); WBC 13.8 k/uL (3.8-10.6)
[2023-03-11 08:23] VITALS: BP 115/74; PULSE 88; RESP 14; TEMP 98.6
--- NOTE | 2023-03-13 12:33 | CDI ---
Documentation Clarification Form Date: 03/13/2023 12:20:41 PM From: Meghna Ken Admit Date: 03/09/2023 05:46:00 AM Patient Name: Nicci Rosa Visit Number: [id number] Discharge Date: 03/11/2023 10:32:00 AM ATTENTION: The Clinical Documentation Specialists (CDI) and [facility] Coding Staff appreciate your assistance in clarifying documentation. Please respond to the clarification below the line at the bottom and electronically sign. The CDI & [facility] Coding staff will review the response and follow-up if needed. Please note: Queries are made part of the Legal Health Record. If you have any questions, please contact the author of this message via ITS. Dr. Man Corona Your patient has a hemoglobin/hematocrit level of 10.6 and 31.6 on 03/09/23, 8.5 and 25.8 on 03/10/23, and 7.9 and 23.7 on 03/11/23. Please clarify if there is an additional diagnosis and/or clinical significance related to these lab values. History/Risk Factors: patient is a 23 year old female 1 para 0. Presented at 37 weeks for induction of labor secondary to gestational hypertension. Clinical indicators: patient delivered via Section, due to experiencing an anterior lip, and the cervix swelled. Head did not descend beyond 0 station. Infant was found to be in occiput transverse presentation. After delivery patient had a boggy uterus and was given 10 units of Pitocin IV and uterus firmed up well. Had a normal post op course. Progress note 03/10: CBC yesterday showed a HGB of 8.5 and is consistent with her preoperative hemoglobin, repeated today and she was started on iron. Treatment: CBC monitoring, started and discharged on Iron. Is there an additional diagnosis and/or clinical significance related to the above lab result/information: [ ] Acute blood loss anemia [ ] Acute on chronic blood loss anemia [ ] No additional diagnosis/Not clinically significant [ ] Unable to determine [ ] Other, please specify MTDD
--- NOTE | 2023-03-19 08:51 | CDI ---
Documentation Clarification Form Date: 03/13/2023 12:20:41 PM From: Mgehna Prabhakar Admit Date: 03/09/2023 05:46:00 AM Patient Name: Nicci Rosa Visit Number: [id number] Discharge Date: 03/11/2023 10:32:00 AM ATTENTION: The Clinical Documentation Specialists (CDI) and [facility] Coding Staff appreciate your assistance in clarifying documentation. Please respond to the clarification below the line at the bottom and electronically sign. The CDI & [facility] Coding staff will review the response and follow-up if needed. Please note: Queries are made part of the Legal Health Record. If you have any questions, please contact the author of this message via ITS. Dr. Man Corona, Your patient has a hemoglobin/hematocrit level of 10.6 and 31.6 on 03/09/23, 8.5 and 25.8 on 03/10/23, and 7.9 and 23.7 on 03/11/23. Please clarify if there is an additional diagnosis and/or clinical significance related to these lab values. History/Risk Factors: patient is a 23 year old female 1 para 0. Presented at 37 weeks for induction of labor secondary to gestational hypertension. Clinical indicators: patient delivered via Section, due to experiencing an anterior lip, and the cervix swelled. Head did not descend beyond 0 station. Infant was found to be in occiput transverse presentation. After delivery patient had a boggy uterus and was given 10 units of Pitocin IV and uterus firmed up well. Had a normal post op course. Progress note 03/10: CBC yesterday showed a HGB of 8.5 and is consistent with her preoperative hemoglobin, repeated today and she was started on iron. Treatment: CBC monitoring, started and discharged on Iron. Is there an additional diagnosis and/or clinical significance related to the above lab result/information: [ ] Acute blood loss anemia [ ] Acute on chronic blood loss anemia [ X ] No additional diagnosis/Not clinically significant [ ] Unable to determine [ ] Other, please specify MTDD
== END 2023-03-11 10:32 | disposition home or self-care (01) | DRG 540 ==
LOC: 4FBP 05:46
PROVIDERS: ADMIT Obstetrics & Gynecology; ATTEND Obstetrics & Gynecology
PROC: 10D00Z1 Extraction of Products of Conception, Low, Open Approach (ICD-10-PCS; principal; 2023-03-09 21:30)
DX: O13.4 Gestational [pregnancy-induced] hypertension without significant proteinuria, complicating childbirth (principal); O32.2XX0 Maternal care for transverse and oblique lie, not applicable or unspecified; O66.9 Obstructed labor, unspecified; O69.81X0 Labor and delivery complicated by cord around neck, without compression, not applicable or unspecified; O76 Abnormality in fetal heart rate and rhythm complicating labor and delivery; Z37.0 Single live birth; Z3A.37 37 weeks gestation of pregnancy
CPT/HCPCS: 85025; 86850; 86900; 86901; 88307

== ENCOUNTER → 2024-05-03 | Outpatient (CLI) | payer OTHER ==
--- NOTE | 2024-05-03 14:12 | US ---
EXAMINATION TYPE: Transabdominal DATE OF EXAM: 05/03/2024 1:10 PM COMPARISON: NONE CLINICAL INDICATION: Female, 24 years old with history of R10.9 ABDOMINAL PAIN; Right flank pain, mil d right pelvic pain, h/o renal stones during last on 2022, no bleeding, TECHNIQUE: OBTA with grayscale and color Doppler imaging including first trimester . FINDINGS: EXAM MEASUREMENTS: GESTATIONAL AGE / DATING Physician Established: Not yet established Dates by LMP: (5 weeks/1 days) EDC: 01/02/2025 Dates by First Scan: No previous this is first scan Dates by Current Scan for: (5 weeks/2 days) EDC: 01/01/2025 MATERNAL ANATOMY Uterus: 9.5 x 6.2 x 4.7cm Right Ovary: 3.7 x 2.0 x 2.7cm Left Ovary: 2.2 x 1.7 x 0.9cm Post CDS / Adnexa: wnl Presence of free fluid: no Presence of corpus luteal cyst: right ovary = 1.6 x 1.7 x 1.6cm Presence of subchorionic bleed: no GESTATION / SURVEY Gestational Sac morphology: Normal Gestational Sac MSD: 1.1cm (5 weeks/2 days) IUP: gestational sac within fundus of UT Date of LMP: 03/28/2025 Beta HcG (if available): not done IMPRESSION: 1. Intrauterine gestational sac may reflect normal early IUP however blighted ovum, missed spontaneou s or ectopic are not excluded. Correlate clinically. Recommend serial beta hCG and /or ultrasound. [facility], , 05/03/2024 2:10 PM
[2024-05-03 19:56] LABS: ALT 27 U/L (8-44); AST 18 U/L (13-35); Albumin 4.5 g/dL (3.8-4.9); Alkaline Phosphatase 69 U/L (41-126); BUN/Creat Ratio 12.86 Ratio (12.00-20.00); Carbon Dioxide 21.5 mmol/L (21.6-31.8); Chloride 106 mmol/L (96-109); Globulin 2.5 g/dL (1.6-3.3); Glucose 102 mg/dL (70-110); Potassium 3.9 mmol/L (3.5-5.5); Sodium 139 mmol/L (135-145); Total Bilirubin 0.4 mg/dL (0.3-1.2)
[2024-05-03 20:01] LABS: Basophils # (A) 0.02 X 10*3/uL (0.00-0.10); Basophils % (A) 0.3 %; Eosinophils # (A) 0.12 X 10*3/uL (0.04-0.35); Eosinophils % (A) 1.5 %; HCT 40.7 % (37.2-46.3); HGB 13.4 g/dL (12.0-15.0); Lymphocytes # (A) 1.82 X 10*3/uL (0.90-5.00); Lymphocytes % (A) 23.3 %; MCHC 32.9 g/dL (32.0-37.0); MCV 91.3 FL (80.0-97.0); Mean Platelet Volume 12.8 FL (9.5-12.2); Monocytes # (A) 0.35 X 10*3/uL (0.20-1.00); Monocytes % (A) 4.5 %; NRBC Per 100 WBC 0 X 10*3/uL (0.00-0.01); Neutrophils # (A) 5.48 X 10*3/uL (1.80-7.70); Neutrophils % (A) 70.1 %; Platelet Count 287 X 10*3/uL (140-440); RBC 4.46 X 10*6/uL (4.10-5.20); RDW 14.2 % (11.5-14.5); WBC 7.81 X 10*3/uL (4.50-10.00)
== END | disposition home or self-care (01) ==
LOC: RADUSWWP 12:45
PROVIDERS: ATTEND Family Medicine
DX: R10.9 Unspecified abdominal pain (principal); Z33.1 Pregnant state, incidental
CPT/HCPCS: 76801; 80053; 84702; 85025; 86900; 86901; 87086

== ENCOUNTER → 2024-05-07 | Outpatient (CLI) | payer OTHER | END | disposition home or self-care (01) | LOC: LABWHC1 10:47 | PROVIDERS: ATTEND Obstetrics & Gynecology | DX: O20.0 Threatened abortion (principal); Z3A.00 Weeks of gestation of pregnancy not specified | CPT/HCPCS: 36415; 84702 ==

== ENCOUNTER 2024-06-29 16:20 | Outpatient (CLI) | payer OTHER ==
[2024-06-29] MEDS: LACTATED RINGERS 1,000 ML IV ONE ×3 (16:52→18:58)
[2024-06-29 18:26] LABS: Appearance,Urine Cloudy (Clear); Bacteria,Urine Many /hpf; Bilirubin,Urine Negative (Negative); Blood,Urine Negative (Negative); Color,Urine Yellow; Glucose,Urine (UA) Negative (Negative); Ketones,Urine 4+ (Negative); Leukocyte Esterase,Urine Negative (Negative); Mucus,Urine Few /hpf; Nitrite,Urine Negative (Negative); PH, Urine 6.5 (5.0-8.0); Protein,Urine Trace (Negative); RBC,Urine 1 /hpf (0-5); Squamous Epithelial Cell,Urine 1 /hpf (0-4); Urobilinogen,Urine <2.0 mg/dL (<2.0); WBC,Urine 1 /hpf (0-5)
[2024-06-29 20:34] VITALS: BP 130/78; PULSE 79; RESP 16; TEMP 97.3
== END 2024-06-29 20:10 | disposition home or self-care (01) ==
LOC: FBPOP 16:20
PROVIDERS: ATTEND Obstetrics & Gynecology
DX: O21.9 Vomiting of pregnancy, unspecified (principal); O99.283 Endocrine, nutritional and metabolic diseases complicating pregnancy, third trimester; Z3A.36 36 weeks gestation of pregnancy; Z91.030 Bee allergy status; Z91.040 Latex allergy status; Z88.5 Allergy status to narcotic agent
CPT/HCPCS: 81001; 96360; 96361

== ENCOUNTER 2024-09-16 18:53 | Outpatient (CLI) | payer OTHER ==
[2024-09-16 20:00] VITALS: BP 119/77; PULSE 94; RESP 16; TEMP 97.8
--- NOTE | 2024-10-06 09:57 | P.MSEPDOC ---
Presenting Problems - Arrival Data Date of Arrival on Unit: 09/16/24 Time of Arrival on Unit: 18:53 Mode of Transport: Ambulatory - Complaint OB-Reason for Admission/Chief Complaint: Other Comment: Vaginal spotting Medical History - Information : 2 Para: 1 Term: 1 : 0 Abortions: Spontaneous or Elective: 0 Number of Living Children: 1 - Gestational Age Gestational Age by SERGIO (wks/days): 24 Weeks and 5 Days - History Complications: Prior Review of Systems - Review of Systems Constitutional: No problems Breast: No problems ENT: No problems Cardiovascular: No problems Respiratory: No problems Gastrointestinal: No problems Genitourinary: No problems Musculoskeletal: No problems Neurological: No problems Skin: No problems Vital Signs - Temperature Temperature: 97.8 F Temperature Source: Temporal Artery Scan - Pulse Pulse Oximetery Pulse Rate: 94 Pulse Assessment Method: Pulse Oximetry - Respirations Respiratory Rate: 16 Oxygen Delivery Method: Room Air O2 Sat by Pulse Oximetry: 95 - Blood Pressure Right Arm Blood Pressure: 119/77 Blood Pressure Mean: 91 Blood Pressure Source: Automatic Cuff Medical Screen Scoring - Assessment - Baby A Baseline FHR: 145 Heart Rate - NICHD Category: Category I (Normal) Physician Notification - Physician Notified Physician Notified Date: 09/16/24 Physician Notified Time: 19:43 Physician: Светлана Shultz New Order Received: Yes - Notification Comment Comment: Dr. Shultz called, report given on maternal c/o spotting since 1744 and back pain (but has a "leaky kidney" per Dr. Ladd). Visual exam revealed no active bleeding but 2 small cuts. FHTs are apporpriate for 24wks and movment is heard. Vitals are WNL. Orders to discharge home with instructions to follow up with Dr. Ladd this week, to pat, not wipe when using the restroom, and use a aditya bottle. Maternal Triage Index - Maternal Triage Index Presenting for scheduled procedure w/no complaint: No - Stat/Priority 1 Stat Priority 1: No - Urgent/Priority 2 Urgent Priority 2: No - Prompt/Priority 3 Prompt Priority 3: No - Non-Urgent/Priority 4 Non-Urgent Priority 4: Yes Criteria Met for Priority 4: pink vaginal spotting, 24 5/7wks Disposition - Disposition OB Disposition: Discharge to home Discharge Date: 09/16/24 Discharge Time: 19:50 I agree with the RN Medical Screening Exam: Yes Case reviewed; plan agreed upon as documented in EMR&OBIX.: Yes Diagnosis: RELATED CONDITIONS, UNSPECIFIED, SECOND TRIMESTER
== END 2024-09-16 19:50 | disposition home or self-care (01) ==
LOC: FBPOP 18:53
PROVIDERS: ATTEND Obstetrics & Gynecology Obstetrics
DX: O26.892 Other specified pregnancy related conditions, second trimester (principal); Z3A.24 24 weeks gestation of pregnancy; Z91.040 Latex allergy status; Z91.030 Bee allergy status; Z88.5 Allergy status to narcotic agent
CPT/HCPCS: 99213

== ENCOUNTER 2024-10-26 01:00 | Outpatient (CLI) | payer BC, OTHER ==
[2024-10-26 02:25] LABS: Appearance,Urine Clear (Clear); Bilirubin,Urine Negative (Negative); Blood,Urine Negative (Negative); Color,Urine Colorless; Glucose,Urine (UA) Negative (Negative); Ketones,Urine Negative (Negative); Leukocyte Esterase,Urine Small (Negative); Mucus,Urine Rare /hpf; Nitrite,Urine Negative (Negative); Protein,Urine Negative (Negative); RBC,Urine 1 /hpf (0-5); Specific Gravity,Urine 1.009 (1.001-1.035); Squamous Epithelial Cell,Urine 1 /hpf (0-4); Urobilinogen,Urine <2.0 mg/dL (<2.0); WBC,Urine 2 /hpf (0-5)
[2024-10-26] MEDS: TERBUTALINE 1 MG/ML VIAL SQ STA (03:54)
[2024-10-26] MEDS: TERBUTALINE 1 MG/ML VIAL SQ PRN (04:15)
[2024-10-26 05:21] VITALS: BP 124/75; PULSE 78; RESP 16
--- NOTE | 2024-11-18 11:27 | P.MSEPDOC ---
Presenting Problems - Arrival Data Date of Arrival on Unit: 10/26/24 Time of Arrival on Unit: 01:00 Mode of Transport: Ambulatory - Complaint OB-Reason for Admission/Chief Complaint: Possible Onset of Labor Comment: pt presents with c/o cramping since 2229 every rating 11/24. Medical History - Information : 2 Para: 1 Term: 1 : 0 Abortions: Spontaneous or Elective: 0 Number of Living Children: 1 - Gestational Age Gestational Age by SERGIO (wks/days): 30 Weeks and 3 Days Review of Systems - Review of Systems Constitutional: No problems Breast: No problems ENT: No problems Cardiovascular: No problems Respiratory: No problems Gastrointestinal: No problems Genitourinary: No problems Musculoskeletal: No problems Neurological: No problems Skin: No problems Vital Signs - Pulse Pulse Oximetery Pulse Rate: 78 - Respirations Respiratory Rate: 16 - Blood Pressure Right Arm Blood Pressure: 124/75 Blood Pressure Mean: 91 Blood Pressure Source: Automatic Cuff Medical Screen Scoring - Uterine Contractions Frequency From (mins): 3 Frequency To (mins): 4 Duration From (seconds): 50 Duration To (seconds): 60 Intensity: Mild Resting: Soft to palpation - Assessment - Baby A Baseline FHR: 145 Heart Rate - NICHD Category: Category I (Normal) NST: Reactive Physician Notification - Physician Notified Physician Notified Date: 10/26/24 Physician Notified Time: 01:50 Physician: belinda New Order Received: Yes - Notification Comment Comment: Karen Overton called, pt of his 30 weeks 1 day. Presents with cramping since 2229. No cx traced or palpated, pt has felt cx 2-3 times since she arrived to triage. NST reactive, one variable traced. Urine was collected and is clear. Order to send UA. Pt may be D/C if negative. Dr. Overton called. UA is negative, pt is now cx 1-4 and uncomfortable. FFN was collected and SVE closed and posterior. Order to send FFN, orally hydrated, and recheck cervix in an hour. Spoke with Dr. Overton. Pt states cx less painful, only a mild period cramp and less frequent. Rates 2/10. Cx on monitor 3-5 min apart, fhr cat 1. Order to d/c home Maternal Triage Index - Maternal Triage Index Presenting for scheduled procedure w/no complaint: No - Stat/Priority 1 Stat Priority 1: No - Urgent/Priority 2 Urgent Priority 2: No - Prompt/Priority 3 Prompt Priority 3: Yes Criteria Met for Priority 3: pt presents with c/o cramping since 2229 every rating 11/24. Disposition - Disposition OB Disposition: Discharge to home Discharge Date: 10/26/24 Discharge Time: 05:11 I agree with the RN Medical Screening Exam: Yes Physician's MSE Comment: I have neither seen nor examined the patient. Case reviewed; plan agreed upon as documented in EMR&OBIX.: Yes Diagnosis: RELATED CONDITIONS, UNSPECIFIED, THIRD TRIMESTER
== END 2024-10-26 05:11 | disposition home or self-care (01) ==
LOC: FBPOP 01:00
PROVIDERS: ATTEND Obstetrics & Gynecology
DX: O26.893 Other specified pregnancy related conditions, third trimester (principal); Z3A.30 30 weeks gestation of pregnancy; Z91.030 Bee allergy status; Z91.040 Latex allergy status; Z88.5 Allergy status to narcotic agent
CPT/HCPCS: 59025; 99214; 96372; 82731; 81001; J3105; 99213

== ENCOUNTER 2024-10-26 19:29 | Outpatient (CLI) | payer BC, OTHER ==
[2024-10-26] MEDS: LACTATED RINGERS 1,000 ML IV ONE (20:15)
[2024-10-26] MEDS: NIFEdipine 10 MG CAP PO STA (21:28)
[2024-10-26] MEDS: TERBUTALINE 1 MG/ML VIAL SQ STA (22:08)
[2024-10-26 23:22] VITALS: BP 125/68; PULSE 93; RESP 16; TEMP 98.1
--- NOTE | 2024-11-05 15:10 | P.MSEPDOC ---
Presenting Problems - Arrival Data Date of Arrival on Unit: 10/26/24 Time of Arrival on Unit: 19:29 Mode of Transport: Ambulatory - Complaint OB-Reason for Admission/Chief Complaint: Possible Onset of Labor Comment: Patient arrived to triage with complaints of contractions that started at 1600. Patient states that her pain is 3/10 with contractions and they feel like cramping. Patient was in triage this morning and recieved terbutaline subq for contractions which slowed down and patient states stopped all together until 1600 today. Medical History - Information : 2 Para: 1 Term: 1 : 0 Abortions: Spontaneous or Elective: 0 Number of Living Children: 1 - Gestational Age Gestational Age by SERGIO (wks/days): 30 Weeks and 3 Days Review of Systems - Review of Systems Constitutional: No problems Breast: No problems ENT: No problems Cardiovascular: No problems Respiratory: No problems Gastrointestinal: No problems Genitourinary: No problems Musculoskeletal: No problems Neurological: No problems Skin: No problems Vital Signs - Temperature Temperature: 98.1 F Temperature Source: Oral - Pulse Pulse Oximetery Pulse Rate: 93 Pulse Assessment Method: Pulse Oximetry - Respirations Respiratory Rate: 16 Oxygen Delivery Method: Room Air O2 Sat by Pulse Oximetry: 98 - Blood Pressure Right Arm Blood Pressure: 125/68 Blood Pressure Mean: 87 Blood Pressure Source: Automatic Cuff Medical Screen Scoring - Cervical Exam Dilation (cm): 0 Membranes: Intact - Uterine Contractions Frequency From (mins): 2 Frequency To (mins): 7 Duration From (seconds): 50 Duration To (seconds): 60 - Assessment - Baby A Baseline FHR: 140 Heart Rate - NICHD Category: Category I (Normal) NST: Reactive Maternal Triage Index - Urgent/Priority 2 Urgent Priority 2: Yes Provider Notified: Lore Castro Provider Notified Time: 20:10 Criteria Met for Priority 2: RN spoke with Dr. Castro regarding patient HX, cat 1 FHR, contraction pattern, pain with contractions. Dr. Castro is aware that patient was here early this morning in triage for the same c/o of contractions. Dr. Castro ordered RN to start an IV and give patient a bolus of LR and if contractions stop patient can be discharged if contractions continue call Dr. mccrary. Disposition - Disposition OB Disposition: Discharge to home Discharge Date: 10/26/24 Discharge Time: 22:40 I agree with the RN Medical Screening Exam: Yes Physician's MSE Comment: I have neither seen nor examined the patient Case reviewed; plan agreed upon as documented in EMR&OBIX.: Yes Diagnosis: RELATED CONDITIONS, UNSPECIFIED, THIRD TRIMESTER
== END 2024-10-26 22:40 | disposition home or self-care (01) ==
LOC: FBPOP 19:29
PROVIDERS: ATTEND Obstetrics & Gynecology
DX: O26.893 Other specified pregnancy related conditions, third trimester (principal); Z88.5 Allergy status to narcotic agent; Z91.040 Latex allergy status; Z91.030 Bee allergy status; Z3A.30 30 weeks gestation of pregnancy
CPT/HCPCS: 59025; 99213; 96361; 96365; 96372; 36415; J3105

== ENCOUNTER 2024-11-01 15:51 | Outpatient (CLI) | payer BC, OTHER ==
[2024-11-01 17:53] VITALS: BP 131/75; PULSE 92; RESP 16; TEMP 98.1
--- NOTE | 2024-11-18 11:32 | P.MSEPDOC ---
Presenting Problems - Arrival Data Date of Arrival on Unit: 11/01/24 Time of Arrival on Unit: 15:51 Mode of Transport: Ambulatory - Complaint OB-Reason for Admission/Chief Complaint: Possible Onset of Labor, Vaginal Bleeding Comment: pt arrived c/o pinkish discharge when she wipes and c/o contractions or cramping unable to time them Medical History - Information : 2 Para: 1 Term: 1 : 0 Abortions: Spontaneous or Elective: 0 Number of Living Children: 1 - Gestational Age Gestational Age by SERGIO (wks/days): 31 Weeks and 2 Days Review of Systems - Review of Systems Constitutional: No problems Breast: No problems ENT: No problems Cardiovascular: No problems Respiratory: No problems Gastrointestinal: No problems Genitourinary: No problems Musculoskeletal: No problems Neurological: No problems Skin: No problems Vital Signs - Temperature Temperature: 98.1 F Temperature Source: Oral - Pulse Pulse Oximetery Pulse Rate: 92 - Respirations Respiratory Rate: 16 Oxygen Delivery Method: Room Air O2 Sat by Pulse Oximetry: 98 - Blood Pressure Right Arm Blood Pressure: 131/75 Blood Pressure Mean: 93 Blood Pressure Source: Automatic Cuff Medical Screen Scoring - Cervical Exam Dilation (cm): 0 Effacement (%): 50 Station: -3 Membranes: Intact - Uterine Contractions Frequency From (mins): 2 Frequency To (mins): 2 Duration From (seconds): 50 Duration To (seconds): 70 Intensity: Mild Resting: Soft to palpation - Assessment - Baby A Baseline FHR: 145 Heart Rate - NICHD Category: Category I (Normal) NST: Reactive Physician Notification - Physician Notified Physician Notified Date: 11/01/24 Physician Notified Time: 16:27 Physician: Justin Ladd Order Received: Yes - Notification Comment Comment: At 1627, Dr. Levy spoke with Dr. Ladd regarding triage pt c/o vaginal bleeding when wiping and some brown bleeding on a pad when going to the bathroom. Reported pt is having contx every 2 minutes, rating pain 7 out of 10, and category 1 FHT. Order received to check pt cervix. Dr. Ladd to call unit in 45 minutes for update on pt. Dr. Ladd did see the pt in the office earlier today and wrote her a prescription for oral terbutaline, which the pt did not cigar packer and picker yet. At 1725, RN reported cervical exam of fingertip/thick/high with no blood noted on exam glove, pt reports contx have lessened but still fee ling back pain every couple of minutes. Order received to reassure pt that some pinkish/brown spotting is not concerning and considered "show," reassure that pt can come into triage if ever concerned, and give pt option to cigar packer and picker her own terbutaline prescription or we can give her a dose then discharge home. Maternal Triage Index - Maternal Triage Index Presenting for scheduled procedure w/no complaint: No - Stat/Priority 1 Stat Priority 1: No - Urgent/Priority 2 Urgent Priority 2: Yes Provider Notified: Justin Ladd Provider Notified Time: 16:27 Criteria Met for Priority 2: < 34 weeks c/o contx Disposition - Disposition OB Disposition: Discharge to home, Written follow up instructions reviewed Discharge Date: 11/01/24 Discharge Time: 17:35 I agree with the RN Medical Screening Exam: Yes Physician's MSE Comment: I have neither seen nor examined the patient. Case reviewed; plan agreed upon as documented in EMR&OBIX.: Yes Diagnosis: RELATED CONDITIONS, UNSPECIFIED, THIRD TRIMESTER
== END 2024-11-01 17:35 | disposition home or self-care (01) ==
LOC: FBPOP 15:51
PROVIDERS: ATTEND Obstetrics & Gynecology
DX: O46.93 Antepartum hemorrhage, unspecified, third trimester (principal); Z3A.31 31 weeks gestation of pregnancy; Z91.030 Bee allergy status; Z91.040 Latex allergy status; Z88.5 Allergy status to narcotic agent
CPT/HCPCS: 59025; 99213

== ENCOUNTER 2024-12-13 09:59 | Outpatient (CLI) | payer BC, OTHER ==
[2024-12-13 10:42] LABS: Basophils # (A) 0.02 10*3/uL (0.00-0.10); Basophils % (A) 0.2 %; Eosinophils # (A) 0.12 10*3/uL (0.04-0.35); Eosinophils % (A) 1.5 %; HCT 30.1 % (37.2-46.3); HGB 10.0 g/dL (12.0-15.0); Lymphocytes # (A) 1.48 10*3/uL (0.90-5.00); Lymphocytes % (A) 18.0 %; MCH 27.9 pg (27.0-32.0); MCHC 33.2 g/dL (32.0-37.0); MCV 84.1 fL (80.0-97.0); Monocytes # (A) 0.46 10*3/uL (0.20-1.00); Monocytes % (A) 5.6 %; Neutrophils # (A) 6.12 10*3/uL (1.80-7.70); Neutrophils % (A) 74.2 %; Platelet Count 215 10*3/uL (140-440); RBC 3.58 10*6/uL (4.10-5.20); RDW 15.1 % (11.5-14.5); WBC 8.24 10*3/uL (4.50-10.00)
[2024-12-13 10:54] LABS: Bacteria,Urine Rare /hpf; Bilirubin,Urine Negative (Negative); Blood,Urine Small (Negative); Color,Urine Colorless; Glucose,Urine (UA) Negative (Negative); Ketones,Urine Negative (Negative); Leukocyte Esterase,Urine Large (Negative); Mucus,Urine Rare /hpf; Nitrite,Urine Negative (Negative); PH, Urine 7.0 (5.0-8.0); Protein,Urine Negative (Negative); RBC,Urine 14 /hpf (0-5); Specific Gravity,Urine 1.015 (1.001-1.035); Squamous Epithelial Cell,Urine 15 /hpf (0-4); Urobilinogen,Urine <2.0 mg/dL (<2.0); WBC,Urine 4 /hpf (0-5)
[2024-12-13 10:59] LABS: Fibrinogen 554.0 mg/dL (200-500); INR 0.9 (<1.2); Partial Thromboplastin Time 20.5 sec (22.0-30.0); Prothrombin Time 9.8 sec (10.0-12.5)
[2024-12-13 11:00] LABS: ALT 12 U/L (4-34); AST 21 U/L (14-36); African American GFR (CKD) >90 (>60 ml/min/1.73 sqM); Blood Urea Nitrogen 10 mg/dL (7-17); LDH 210 U/L (120-246); Non-African American GFR(CKD) >90 (>60 ml/min/1.73 sqM); Uric Acid 5.3 mg/dL (3.7-7.4)
[2024-12-13 11:34] LABS: Protein/Creatinine Ratio,Urine 0.138
[2024-12-13 11:55] VITALS: BP 135/67; PULSE 94; RESP 16; TEMP 98.5
== END 2024-12-13 11:50 | disposition home or self-care (01) ==
LOC: FBPOP 09:59
PROVIDERS: ATTEND Obstetrics & Gynecology
CPT/HCPCS: 36415; 59025; 81001; 82565; 82570; 83615; 84156; 84450; 84460; 84520; 84550; 85025; 85384; 85610; 85730